=== PATIENT | male | born 2005 | race Caucasian/White ===

== ENCOUNTER 2025-07-28 06:00 | Emergency (ER) | payer MEDICAID ==
[~2025-07-28] VITALS: Ht 177.8 cm; Wt 68.2 kg
[2025-07-28 06:58] VITALS: BP 129/90; PULSE 75; RESP 16; O2SAT 97
[2025-07-28] MEDS ORDERED: ARIP10TA9 PO (06:59)
--- NOTE | 2025-07-28 07:35 | Physician Documentation ---
History of Present Illness General Chief Complaint: Tooth Problem Stated Complaint: DENTAL PAIN Time Seen by : 07:30 Primary Medical Doctor: [facility] Mode of Arrival: POV History of Present Illness Initial Comments The patient is a 19-year-old male who presents to the emergency department with a cracked right upper tooth and tooth pain x2 days. The patient has complains of some slight swelling and pain that has kept her up for last two nights. No fevers the patient complains of slight the patient has pain. Symptoms are mild and persistent Medication Reconciliation Allergies: Coded Allergies: No Known Allergies (Unverified , 07/28/25) Scheduled Amoxicillin Trihydrate* (Amoxicillin*), 2 CAP PO Q12H Aripiprazole (Abilify), 1 TAB PO DAILY, (Reported) Past Medical History Past Medical History: Seizures, Anxiety, Bipolar Past Surgical History: no surgical history Alcohol Use: None Drug Use: none Lives with: Family Lives In: Home Occupation: child Review of Systems All Other Systems at this time: Reviewed and Negative Physical Exam Physical Exam Vital Signs: Temperature: 98.0, Source: Temporal, Heart Rate: 75, Respiratory R ate: 16, BP: 129/90, Pulse Oximetry: 97, Weight: 68.200 Physical Exam VITALS: Reviewed and as above. GENERAL: Alert, no apparent distress. HEENT: Normocephalic, atraumatic, PERRL, EOMI, dry mucosa, no erythema the tooth seven and eight are cracked with multiple with a caries the gingival mucosa is erythematous there was no fluctuance. BACK: No CVA tenderness, or swelling MUSCULOSKELETAL: No deformities, no edema SKIN: Warm and dry, no rash NEURO: Oriented x4, No motor or sensory deficit PSYCH: Normal mood and affect, no agitation Progress Results/Orders Results/Orders Completed Orders - SREE PRETTY MD Bupivacaine 0.5% W/Epi/Pf (Sensorcaine-E (07/28/25 07:35) Amoxicillin Capsule (Trimox Capsule) (07/28/25 07:40) Vital Signs 07/28/25 07/28/25 07/28/25 06:03 06:50 06:58 Temp 98.0 Pulse 95 75 Resp 17 16 16 B/P (MAP) 132/83 129/90 (103) Pulse Ox 98 97 Departure Disposition: 01 HOME / SELF CARE / HOMELESS Impression: Primary Impression: Toothache Discharge Instructions: Dental Pain Additional Instructions: Take the antibiotics as prescribed use Tylenol or ibuprofen for pain. Follow up with your dentist as soon as possible. Return for significant worsening of your symptoms Referrals: NO PRIMARY CARE PROVIDER (PCP) Prescriptions Amoxicillin Trihydrate* (Amoxicillin*) 500 Mg Capsule 2 CAP PO Q12H for 14 Days, #56 CAP Prov: SREE PRETTY MD 07/28/25 SREE PRETTY MD Jul 28, 2025 07:35
[2025-07-28] MEDS ORDERED: AMOX500C2 PO (07:47)
[2025-07-28] MEDS: BUPIVAcaine 0.5% W/EPI /PF 10ml vial IJ STA (08:28)
[2025-07-28 08:35] VITALS: TEMP 98
== END 2025-07-28 08:38 | disposition home or self-care (01) ==
LOC: ER 06:01
DX: K08.89 Other specified disorders of teeth and supporting structures (principal); F31.9 Bipolar disorder, unspecified; F41.9 Anxiety disorder, unspecified
CPT/HCPCS: 99283

== ENCOUNTER 2025-07-30 09:46 | Emergency (ER) | payer MEDICAID ==
[~2025-07-30] VITALS: Ht 177.8 cm; Wt 72.7 kg
[~2025-07-30 09:46] MED LIST: AMOX500C2 PO; ARIP10TA9 PO
[2025-07-30 10:08] VITALS: TEMP 97.8
--- NOTE | 2025-07-30 10:11 | Physician Documentation ---
HPI ~ General Chief Complaint: Tooth Problem Stated Complaint: EAR INFECTION Time Seen by MD: 10:15 Primary Medical Doctor: [facility] History of Present Illness HPI Comment Year old male with presents to the ED with a complaint of right upper tooth pain and swelling. He states he was seen here in the ED and placed on oral amoxicillin. He said his pain has persisted and worsened feels generally ill along with the increased pain and swelling Medication Reconciliation Allergies: Coded Allergies: No Known Allergies (Unverified , 07/30/25) Scheduled Amoxicillin Trihydrate* (Amoxicillin*), 2 CAP PO Q12H Aripiprazole (Abilify), 1 TAB PO DAILY, (Reported) Past Medical History Past Medical History: Seizures, Anxiety, Bipolar Past Surgical History: no surgical history Alcohol Use: None Drug Use: none Lives with: Family Lives In: Home Occupation: child Review of Systems All Other Systems at this time: Reviewed and Negative ROS As stated above in the HPI, otherwise all systems are reviewed and negative. Physical Exam Vital Signs: Temperature: 97.8, Source: Temporal, Heart Rate: 95, Respiratory Rate: 18, BP: 122/75, Pulse Oximetry: 98, Weight: 72.730 Physical Exam General: Alert, no apparent distress. HEENT: PERRL, EOMI, no injection, moist mucous membranes. flucuant region inline with right upper incisor.poor dentition througout Neurologic: Oriented x4. Psychiatric: Normal mood and affect. Skin: Normal color, warm and dry. No edema, no ecchymosis. Procedures I & D Procedure : Anesthesia: Lidocaine w/ Epi Blade Size: 11 Incision: pus drained, blood drained Tolerated Procedure Well?: yes, no complications Progress Results/Orders Results/Orders Orders - OTIS DON NP Laceration/I&D Tray Set Up (07/30/25 ) Completed Orders - OTIS DON NP Lidocaine 1% W/Epi 1:100,000 (Xylocaine (07/30/25 10:15) Medications Received in ER Medications (Trade) Dose Ordered Sig/Nikko Route PRN Reason Start Time Stop Time Status Last Admin Dose Admin (Xylocaine 1%-EPI 1:100,000) 30 ml ONCE ONCE SQ 07/30/25 10:15 07/30/25 10:16 DC 07/30/25 10:22 30 ML Vital Signs 07/30/25 10:08 Temp 97.8 Pulse 95 Resp 18 B/P (MAP) 122/75 Pulse Ox 98 Medical Decision Making Findings This patient met criteria for I and D as he was already placed on amoxicillin and continues developed an abscess in line with his right upper incisor. Patient tolerated procedure well and there was gross purulent discharge. Patient reported improved symptoms almost immediately. Stopped him on amoxicillin have him start clindamycin for better coverage Differential Dx:Considerations: Include: Alveolar fracture, Alveolar osteitis, ANUG, Facial Cellulitis, Periapical abscess, Peridontal abscess, Post-extraction bleeding, Pulpitis, Tooth avulsion, Tooth eruption, Tooth Fracture, Trigeminal neuralgia, Tooth subluxation, Other Departure Disposition: 01 HOME / SELF CARE / HOMELESS Impression: Primary Impression: Dental abscess Condition: Stable Discharge Instructions: Dental Abscess Referrals: NO PRIMARY CARE PROVIDER (PCP) Prescriptions Clindamycin HCl (Cleocin HCl) 300 Mg Capsule 1 CAP PO Q8H for 10 Days, #30 CAP Prov: TOIS DON NP 07/30/25 Education Educated: Patient Signature Scribe Signature: g Attestation: Scribed for Otis Don Yard[employer] Control Clerk by Otis Coppola NP . 07/30/25 10:40 OTIS DON NP Jul 30, 2025 10:11
[2025-07-30] MEDS: LIDOcaine 1% W/epiNEPHrine 1:100,000 20ml vial SQ ONE (10:22)
[2025-07-30] MEDS ORDERED: CLIN300C3 PO (10:39)
[2025-07-30 10:51] VITALS: BP 155/74; PULSE 64; RESP 14; O2SAT 99
== END 2025-07-30 10:54 | disposition home or self-care (01) ==
LOC: ER 09:47
DX: K04.7 Periapical abscess without sinus (principal); F31.9 Bipolar disorder, unspecified
CPT/HCPCS: 41800; 99284; J3490

== ENCOUNTER 2025-10-26 13:31 | Emergency (ER) | payer MEDICAID ==
[~2025-10-26] VITALS: Ht 180.3 cm; Wt 64.3 kg
[~2025-10-26 13:31] MED LIST changes: -AMOX500C2 PO
[2025-10-26 13:42] VITALS: BP 122/75; TEMP 98.1
--- NOTE | 2025-10-26 14:31 | RADIOLOGY REPORT ---
CHEST RADIOGRAPH Indication: CP Technique: Single frontal view of the chest was obtained COMPARISON: None FINDINGS: Lines and Tubes: None Lungs: Clear Pleura: No effusion. No pneumothorax. Cardiomediastinal contours: Unremarkable Bones: Unremarkable IMPRESSION: No acute disease.
[2025-10-26] MEDS ORDERED: METH4TAB81 PO (14:52)
[2025-10-26] MEDS ORDERED: ALBU8HFA INH (14:52)
--- NOTE | 2025-10-26 14:52 | Physician Documentation ---
History of Present Illness ~ Chief Complaint: Shortness of Breath Stated Complaint: SOB Time Seen by MD: 14:26 OK to notify your PCP?: Yes Primary Medical Doctor: [facility] Source: patient Mode of Arrival: EMS Exam Limitations: no limitations HPI 19 y/o male who identifies as female here for SOB which started a few days ago getting progressively worse. Patient reports asthma as a child but states he outgrew it. He has not used inhalers since he was in elementary school. He reports coughing is worse when he tries to take deep breath. Cough is dry. No fever, chills, sinus pain, sore throat, cp, abdominal pain, nausea, edema, rashes. Medication Reconciliation Allergies: Coded Allergies: iodine (Verified Allergy, Severe, AIRWAY CLOSES, 10/26/25) Uncoded Allergies: SHELLFISH (Allergy, Severe, AIRWAY CLOSES, 10/26/25) TREE NUTS (Allergy, Mild, ITCHING, 10/26/25) Scheduled Aripiprazole (Abilify), 1 TAB PO DAILY, (Reported) Methylprednisolone (Medrol Dosepak), 0 PO UD Scheduled PRN albuterol inhaler (Pro-Air Inhaler), 2 PUFFS INH Q4HPRN PRN for wheezing Past Medical History Past Medical History: Seizures, Anxiety, Bipolar Past Surgical History: no surgical history Alcohol Use: None Drug Use: none Lives with: Family Lives In: Home Occupation: child Review of Systems All Other Systems at this time: Reviewed and Negative Physical Exam Vital Signs: Temperature: 98.1, Source: Oral, Heart Rate: 107, Respiratory Rate: 20, BP: 122/75, Pulse Oximetry: 98, Weight: 64.300 Oxygen Flow Rate: 0 Physical Exam GENERAL: Alert, no acute distress. HEENT: NCAT, EOMI, PERRL, normal oropharynx, moist oral mucosa. +ttp over sinuses, patient sounds extremely congested in sinuses. pharyngeal wall normal. NECK: Supple, trachea midline. No cervical LAD. CARDIAC: Regular rate and rhythm, no murmurs, rubs, or gallops. Equal distal pulses. No lower extremity edema, cap refill less than 2 seconds. RESPIRATORY: Expiratory wheezing throughout posterior lung sommers with rhonchi. Coughing with deep respiration. No respiratory distress. MUSCULOSKELETAL: Normal range of motion, nontender, no swelling. Normal gait. NEUROLOGICAL: Awake, alert, and oriented x 3. SKIN: Warm/dry, no pallor, no rash. PSYCH: Alert and appropriate. Affect congruent with mood. Speech is clear. Good eye contact. Progress Results/Orders Results/Orders Orders - DI WRIGHT Svn Treatment (10/26/25 14:42) Completed Orders - DI WRIGHT Ipratropium/Albuterol Nebule (Ipratrop/A (10/26/25 14:45) Methylprednisolone Sod Succ (Solumedrol (10/26/25 14:45) Medications Received in ER Medications (Trade) Dose Ordered Sig/Nikko Route PRN Reason Start Time Stop Time Status Last Admin Dose Admin (ipratrop/ albuterol 0.5-3(2.5) MG/3ml nebule) 3 ml ONCE ONCE NEB 10/26/25 14:45 10/26/25 14:46 DC 10/26/25 14:58 3 ML (SoluMEDROL 125mg inj) 125 mg ONCE ONCE IV 10/26/25 14:45 10/26/25 14:46 DC 10/26/25 15:29 125 MG Vital Signs 10/26/25 10/26/25 10/26/25 10/26/25 13:42 14:08 14:09 14:59 Temp 98.1 Pulse 107 102 Resp 20 20 20 B/P (MAP) 122/75 Pulse Ox 98 98 95 O2 Delivery Room Air* Room Air* O2 Flow Rate 0 0 0 FiO2 21 21 10/26/25 15:06 Pulse 115 Resp 18 Pulse Ox 99 O2 Delivery Room Air* O2 Flow Rate 0 FiO2 21 Laboratory Tests Test 10/26/25 14:26 White Blood Count 16.5 H Red Blood Count 5.66 Hemoglobin 16.2 Hematocrit 46.7 Mean Corpuscular Volume 82.4 Mean Corpuscular Hemoglobin 28.6 Mean Corpuscular Hemoglobin Concent 34.7 Red Cell Distribution Width 14.2 Platelet Count 273 Mean Platelet Volume 8.4 Neutrophils (%) (Auto) 79.9 H Lymphocytes (%) (Auto) 7.5 L Monocytes (%) (Auto) 11.0 Eosinophils (%) (Auto) 1.3 Basophils (%) (Auto) 0.3 Neutrophils # (Auto) 13.2 H Lymphocytes # (Auto) 1.2 Monocytes # (Auto) 1.8 H Eosinophils # (Auto) 0.2 Basophils # (Auto) 0.0 CBC Comment Sodium Level 137 Potassium Level 4.0 Chloride Level 105 Carbon Dioxide Level 20.5 L Anion Gap 12 Blood Urea Nitrogen 12 Creatinine 0.73 Estimated GFR/1.73 m2 > 90 BUN/Creatinine Ratio 16.4 Glucose Level 88 Calcium Level 8.8 Troponin I High Sensitivity < 4 L Troponin I High Sens Percent Delta Troponin I Hi Sens Absolute Change Pro-B-Type Natriuretic Peptide < 30 Albumin 4.2 Chemistry Comments Heart Score: Heart Score Response (Comments) Value History Slightly Suspicious 0 EKG Normal 0 Age <45 0 Risk Factors No known risk factors 0 Troponin Normal limit 0 Total 0 Medical Decision Making Additional information obtaine: N/A Findings n/a Heart Score: 0 Differential Dx:Considerations: Include: anxiety, asthma, bronchitis, cardiogenic shock, CHF, COPD, dysrhythmia, hypertension, accelerated, hypertension, essential, hypertension, malignant, hyperventilation, h yponatremia, myocardial infarction, panic attack, pneumonia, pneumonitis, pneumothorax, PSVT, pulmonary embolism, respiratory distress, respiratory failure, sinusitis, upper resp. infection, other Departure Time of Disposition: 14:52 Disposition: 01 HOME / SELF CARE / HOMELESS Impression: Primary Impression: Acute asthmatic bronchitis Additional Impression: Acute sinusitis Qualified Codes: J01.00 - Acute maxillary sinusitis, unspecified Condition: Stable Discharge Instructions: Upper Respiratory Infection, Adult Additional Instructions: GENERALLY WE DO NOT TREAT BRONCHITIS WITH ANTIBIOTICS OR SINUSITIS USUALLY IT IS VIRAL HOWEVER GIVEN THE FACT THAT YOUR WHITE BLOOD CELL COUNT WAS ELEVATED AND THIS WAS DONE PRIOR TO GETTING THE STEROIDS HERE I AM GOING TO SEND YOU WITH AN ANTIBIOTIC TO COVER FOR BACTERIAL ETIOLOGY CHEST XRAY NEGATIVE SYMPTOMS ARE CONSISTENT WITH ACUTE BRONCHOSPASM I SENT RX FOR MEDROL DOSE LORENA AND INHALER DO NOT START THE MEDROL UNTIL TOMORROW SINCE WE GAVE YOU SOLUMEDROL HERE IN THE ER YOU CAN ALSO GET DELSYM WHICH IS A GOOD DECONGESTANT COUGH SUPPRESSANT Referrals: NO PRIMARY CARE PROVIDER (PCP) Prescriptions Amox Tr/Potassium Clavulanate (Augmentin 875-125 Tablet) 1 Each Tablet 1 TAB PO Q12H for 10 Days, #20 TAB Prov: DI WRIGHT 10/26/25 albuterol inhaler (Pro-Air Inhaler) 8.5 Gm Inhaler 2 PUFFS INH Q4HPRN PRN for wheezing for 30 Days, #18 GM Prov: DI WRIGHT 10/26/25 Methylprednisolone (Medrol Dosepak) 4 Mg Tab.ds.pk 0 PO UD, #21 TAB 0 Refills take 6 Pills Day 1, 5 Pills Day 2, 4 Pills Day 3, 3 Pills Day 4, 2 Pills Day 5 and 1 pill Day 6 Prov: DI WRIGHT 10/26/25 Education Educated: Patient Educated regarding: diagnosis, treatment, need for follow up Signature Scribe Signature: X Attestation: DI ROOT Oct 26, 2025 14:52
[2025-10-26 14:53] LABS: MEAN PLATELET VOLUME 8.4 FL (7.4-10.4); RED CELL DISTRIBUTION WIDTH 14.2 % (11.5-14.5)
[2025-10-26] MEDS: ipratropium/albuterol 3ml nebule NEB ONE (14:58)
[2025-10-26 14:59] VITALS: PULSE 102; RESP 20; O2SAT 95
[2025-10-26 15:06] VITALS: PULSE 115; RESP 18; O2SAT 99
[2025-10-26 15:20] LABS: CREATININE 0.73 MG/DL (0.60-1.10); PRO BRAIN NATRIURETIC PEPTIDE < 30 PG/ML (0-125); TOTAL CARBON DIOXIDE 20.5 MMOL/L (24-32); eCRCL 146 ML/MIN; eGFR > 90 ML/MIN
[2025-10-26] MEDS ORDERED: AMOX-117 PO (15:35)
--- NOTE | 2025-10-26 18:03 | ELECTROCARDIOGRAPH REPORT ---
[facility] Test Date: 2025-10-26 Test Time: 15:00:07 Pat Name: KARI ONEILL Department: [facility] Patient ID: [id number] Room: Gender: M Brokerage Coordinator: : 2005 Requested By: JASPAL MARIEE Order Number: [id number] Reading MD: Dr. MARCIO Cabrera Measurements Intervals [place] Rate: 104 P: 84 MS: 147 QRS: 52 QRSD: 91 T: 50 QT: 318 QTc: 419 Interpretive Statements Sinus tachycardia Right atrial enlargement Probable inferior infarct, acute Borderline ST elevation, anterior leads Lateral leads are also involved Electronically Signed On 10-27-2025 19:22:[address] MARCIO Cabrera Please click the below link to view image of tracing.
== END 2025-10-26 16:11 | disposition home or self-care (01) ==
LOC: ER 13:31
DX: J45.909 Unspecified asthma, uncomplicated (principal); J01.90 Acute sinusitis, unspecified; F31.9 Bipolar disorder, unspecified; F41.9 Anxiety disorder, unspecified; Z88.8 Allergy status to other drugs, medicaments and biological substances; Z87.09 Personal history of other diseases of the respiratory system; Z79.899 Other long term (current) drug therapy
CPT/HCPCS: 36415; 71045; 80048; 83880; 84484; 85025; 93005; 94640; 96374; 99285; J2919; 94760